=== PATIENT | male | born 1965 | race American Indian/Alaskan Native ===

== ENCOUNTER 2016-10-28 09:41 | Outpatient (CLI) | payer OTHER ==
--- NOTE | 2016-10-28 10:46 | XRay Report ---
Left knee: AP and lateral projections demonstrate periarticular spurring around the medial compartment. The articular margins are smooth and the joint spaces are preserved. The bones are well-mineralized. There is no effusion nor swelling. Impression: Mild degenerative medial joint compartment changes.
== END 2016-10-28 09:42 | disposition home or self-care (01) ==
LOC: XRAY 09:41
PROVIDERS: ATTEND Internal Medicine
DX: I10 Essential (primary) hypertension (principal); F32.9 Major depressive disorder, single episode, unspecified; E66.9 Obesity, unspecified